=== PATIENT | male | born 1995 | race Hispanic/Latino ===

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

== ENCOUNTER 2018-09-28 08:12 | Emergency (ER) | payer OTHER ==
[2018-09-28 08:12] VITALS: BMI 26.9
[2018-09-28 08:46] VITALS: RESP 20
--- NOTE | 2018-09-28 10:19 | C.PDOC ---
History Of Present Illness 23 y/o male presents to the ER complaining of left knee pain and swelling which has been present since yesterday. Patient states that the pain began after he slipped,fell, and landed on his left knee while he was ice skating. Patient reports that the pain is worse with movement. Denies having weakness, numbnes,s and other injuries. Time Seen by Provider: 09/28/18 08:35 Chief Complaint (Nursing): Lower Extremity Problem/Injury History Per: Patient History/Exam Limitations: no limitations Onset/Duration Of Symptoms: Days Current Symptoms Are (Timing): Still Present Severity: Moderate Past Medical History Reviewed: Historical Data, Nursing Documentation, Vital Signs Vital Signs: Last Vital Signs Temp 98 F 09/28/18 08:26 Pulse 59 L 09/28/18 08:26 Resp 20 09/28/18 08:26 BP 129/70 09/28/18 08:26 Pulse Ox 98 09/28/18 08:26 - Medical History PMH: Depression Surgical History: No Surg Hx - [facility] Procedures CIRCUMCISION (97) Family History: States: No Known Family Hx - Social History Hx Tobacco Use: No Hx Alcohol Use: No Hx Substance Use: Yes - Immunization History Hx Tetanus Toxoid Vaccination: Yes Hx Influenza Vaccination: No Hx Pneumococcal Vaccination: No Review Of Systems Except As Marked, All Systems Reviewed And Found Negative. Musculoskeletal: Positive for: Other (left knee pain and swelling) Neurological: Negative for: Weakness, Numbness Physical Exam - Physical Exam Appears: Non-toxic, No Acute Distress Skin: Normal Color, Warm, Dry Head: Atraumatic, Normacephalic Eye(s): bilateral: Normal Inspection Nose: Normal Oral Mucosa: Moist Neck: Supple Chest: Symmetrical Extremity: Normal ROM (pain with flexion of left knee, normal extension of left knee), Tenderness (mild tenderness to anterior aspect of left knee), Capillary Refill (< 2 seconds), Swelling (mild swelling to anterior aspect of left knee) Pulses: Left Dorsalis Pedis: Normal Neurological/Psych: Oriented x3, Normal Speech, Normal Motor, Normal Sensation ED Course And Treatment O2 Sat by Pulse Oximetry: 98 (RA) Pulse Ox Interpretation: Normal - Other Rad X-Ray-Left Knee X-Ray: Viewed By Me, Read By Radiologist Interpretation: 09/28/2018. PROCEDURE: Left Knee Radiographs. HISTORY: Pain. COMPARISON: None. FINDINGS: BONES: Normal. No fracture. JOINTS: Mild narrowing of the medial compartment with subchondral sclerosis of the medial tibial articular surface. No articular erosion. Lateral and patellofemoral compartments are preserved. No articular erosion. JOINT EFFUSION: None. OTHER FINDINGS: None. IMPRESSION: Mild medial osteoarthritis. Medical Decision Making Medical Decision Making: Plan: --Motrin PO --X-Ray-Left Knee Updates: X-Ray-Left Knee is negative for fracture. Patient has been discharged and ins tructed to follow up with PMD in 1-2 days. Disposition - Disposition Referrals: Miki Ponce MD [Staff Provider] - Disposition: HOME/ ROUTINE Disposition Time: 10:17 Condition: STABLE Additional Instructions: Follow up with the medical doctor within 1-2 days. return if worsened. 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 - Scribe Statement The provider has reviewed the documentation as recorded by the Emmie Hartley Provider Attestation All medical record entries made by the Emmie were at my direction and personally dictated by me. I have reviewed the chart and agree that the record accurately reflects my personal performance of the history, physical exam, medical decision making, and the department course for this patient. I have also personally directed, reviewed, and agree with the discharge instructions and disposition.
[2018-09-28 10:49] VITALS: BP 125/72; PULSE 51; TEMP 97.8
--- NOTE | 2018-09-28 11:21 | RAD ---
09/28/2018 PROCEDURE: Left Knee Radiographs. HISTORY: Pain. COMPARISON: None. FINDINGS: BONES: Normal. No fracture. JOINTS: Mild narrowing of the medial compartment with subchondral sclerosis of the medial tibial articular surface. No articular erosion. Lateral and patellofemoral compartments are preserved. No articular erosion. JOINT EFFUSION: None. OTHER FINDINGS: None. IMPRESSION: Mild medial osteoarthritis.
[2018-09-28 12:12] VITALS: O2SAT 98
== END 2018-09-28 10:51 | disposition home or self-care (01) ==
LOC: C.ER 08:12
DX: S83.92XA Sprain of unspecified site of left knee, initial encounter (principal); W01.0XXA Fall on same level from slipping, tripping and stumbling without subsequent striking against object, initial encounter; Y93.21 Activity, ice skating